=== PATIENT | female | born 1985 | race African-American/Black ===

== ENCOUNTER 2017-06-17 04:20 | Emergency (ER) | payer OTHER ==
[~2017-06-17] VITALS: Ht 165.1 cm; Wt 149.5 kg
[2017-06-17] MEDS ORDERED: CHOL500014 PO (04:40)
[2017-06-17] MEDS ORDERED: ASCO500T8 PO (04:42)
[2017-06-17] MEDS ORDERED: TURM500C3 PO (04:42)
[2017-06-17] MEDS ORDERED: MULT-308 PO (04:44)
[2017-06-17 06:11] VITALS: BP 130/68
== END 2017-06-17 06:13 | disposition home or self-care (01) ==
LOC: ED 05:31
DX: H92.03 Otalgia, bilateral (principal)
CPT/HCPCS: 99283